=== PATIENT | male | born 1990 | race Caucasian/White ===

== ENCOUNTER 2019-06-10 00:06 | Emergency (ER) | payer OTHER ==
[~2019-06-10] VITALS: Ht 180.3 cm; Wt 61.2 kg
[2019-06-10] MEDS ORDERED: LOPERAMIDE 2 MG2 M1 PO (00:32)
[2019-06-10] MEDS ORDERED: TYLENOL325 MG PO (00:32)
[2019-06-10] MEDS ORDERED: ZOFRAN4 MG PO (00:32)
[2019-06-10] MEDS ORDERED: ATIVAN1 MG PO (00:32)
[2019-06-10] MEDS ORDERED: IBUPROFEN 800800 MG PO (00:32)
[2019-06-10 00:52] LABS: ABSOLUTE EOSINOPHILS 0.1 thou/uL (0.0-0.7); ABSOLUTE LYMPHOCYTES 2.5 thou/uL (0.8-5.3); ABSOLUTE MONOCYTES 0.4 thou/uL (0.0-1.2); BASOPHILS 0.6 %; EOSINOPHILS 2.1 %; HEMATOCRIT 39.3 % (42.0-52.0); HEMOGLOBIN 13.1 gm/dL (14.0-18.0); LYMPHOCYTES 34.8 %; MCHC 33.5 g/dL (28.0-37.0); MCV 83.7 fL (80.0-100.0); MONOCYTES 5.7 %; MPV 6.6 fl. (7.2-11.1); NUCLEATED RBCS 0 /100WBC; PLATELET COUNT* 311 thou/uL (150-400); POLYS 56.8 %; RBC 4.69 mil/uL (4.50-6.00); RDW-CV 13.4 % (10.5-14.5); WBC 7.1 thou/uL (4.0-11.0)
[2019-06-10 01:03] LABS: CALCIUM 9.7 mg/dL (8.5-10.1); CREATININE 0.9 mg/dL (0.6-1.3)
[2019-06-10 01:08] LABS: TOTAL BILIRUBIN 0.4 mg/dL (<0.1-1.0); TOTAL PROTEIN 8.9 g/dL (6.4-8.2)
[2019-06-10 02:35] VITALS: BP 97/60
== END 2019-06-10 02:35 ==
LOC: M.ERS 00:06
PROVIDERS: Emergency Medicine
DX: F11.23 Opioid dependence with withdrawal (principal); R25.1 Tremor, unspecified

== ENCOUNTER 2020-08-06 12:36 | Emergency (ER) | payer OTHER ==
[~2020-08-06] VITALS: Ht 177.8 cm; Wt 59.0 kg
[~2020-08-06 12:36] MED LIST: ATIVAN1 MG PO; IBUPROFEN 800800 MG PO; LOPERAMIDE 2 MG2 M1 PO; TYLENOL325 MG PO; ZOFRAN4 MG PO
[2020-08-06] MEDS ORDERED: ALPRAZOLAM XR3 MG PO (12:48)
[2020-08-06 14:09] LABS: ABSOLUTE BASOPHILS 0.1 thou/uL (0.0-0.2); ABSOLUTE EOSINOPHILS 0.2 thou/uL (0.0-0.7); ABSOLUTE LYMPHOCYTES 1.5 thou/uL (0.8-5.3); ABSOLUTE MONOCYTES 0.5 thou/uL (0.0-1.2); ABSOLUTE NEUTROPHILS 4.5 thou/uL (1.6-8.1); BASOPHILS 0.9 %; CALCIUM 8.6 mg/dL (8.5-10.1); CREATININE 0.9 mg/dL (0.6-1.3); EOSINOPHILS 2.7 %; HEMATOCRIT 32.9 % (42.0-52.0); LYMPHOCYTES 22.4 %; MCH 28.5 pg (26.0-34.0); MCHC 33.5 g/dL (28.0-37.0); MCV 85.3 fL (80.0-100.0); MONOCYTES 7.6 %; MPV 6.1 fl. (7.2-11.1); NUCLEATED RBCS 0 /100WBC; PLATELET COUNT* 343 thou/uL (150-400); POLYS 66.4 %; POTASSIUM 4.1 mmol/L (3.5-5.1); RBC 3.86 mil/uL (4.50-6.00); RDW-CV 12.5 % (10.5-14.5); WBC 6.7 thou/uL (4.0-11.0)
[2020-08-06] MEDS ORDERED: ONDANSETRON HCL4 M2 PO (14:17)
[2020-08-06] MEDS ORDERED: CATAPRES0.1 MG PO (14:17)
[2020-08-06 14:56] VITALS: BP 110/61
== END 2020-08-06 14:57 ==
LOC: M.ERS 12:36
PROVIDERS: Nurse Practitioner Family
DX: F19.10 Other psychoactive substance abuse, uncomplicated (principal)